=== PATIENT | male | born 1985 | race Caucasian/White ===

== ENCOUNTER 2021-01-21 03:28 | Inpatient (IN) | payer MEDICAID ==
[~2021-01-21] VITALS: Ht 190.5 cm; Wt 78.0 kg
[2021-01-21] VITALS (22 sets, daily range): BP systolic 89–138; BP diastolic 52–88
--- NOTE | 2021-01-21 03:31 | NUR ---
UNABLE TO OBTAIN RECTAL TEMP AT THIS TIME. PATIENT IS GIVEN WARM BLANKT WITH JEFRY HUGGER
--- NOTE | 2021-01-21 03:36 | NUR ---
UNABLE TO OBTAIN EKG AT THIS TIME, PATIENT IS SHAKING TOO MUCH.
--- NOTE | 2021-01-21 03:39 | NUR ---
PT [id number] WITH [employer] FOR POSSIBLE OVERDOSE. FOUND ON THE STREET, GIVEN NARCAN 2MG INTRANASAL. PLACED IN BED 12 ON SMALL BUSINESS BANKING OFFICER AND PULSE OX. PT NOTED TO BE HYPOTHERMIC. PLACED BLANKETS ON PT. ER MD AT BEDSIDE FOR EVAL AND ORDERS.
[2021-01-21] MEDS ORDERED: IV NS 0.9% 1,000 ML BAG IV ONE (04:00)
[2021-01-21 04:20] LABS: BASOPHILS % (AUTO) 0.2 % (0.0-2.0); EOSINOPHILS % (AUTO) 0.2 % (0.0-6.0); HEMATOCRIT 42 % (39-51); HEMOGLOBIN 13.3 g/dL (13.5-17.5); LYMPHOCYTES # (AUTO) 1.8 K/uL (0.8-4.8); LYMPHOCYTES % (AUTO) 7.6 % (20.0-44.0); MEAN CORPUSCULAR HGB CONC 32 g/dl (31.0-36.0); MEAN CORPUSCULAR VOLUME 92 fL (80-96); MONOCYTES # (AUTO) 0.8 K/uL (0.1-1.30); MONOCYTES % (AUTO) 3.6 % (2.0-12.0); NEUTROPHILS # (AUTO) 20.5 K/uL (1.8-8.9); NEUTROPHILS % (AUTO) 88.4 % (43.0-81.0); PLATELET COUNT (AUTO) 372 K/uL (150-450); RED BLOOD CELL COUNT(AUTO) 4.56 MIL/uL (4.5-6.0); WHITE BLOOD COUNT (AUTO) 23.2 K/uL (4.3-11.0)
[2021-01-21 04:30] LABS: CARBON DIOXIDE 18 mmol/L (21-32); CHLORIDE 97 mmol/L (98-107); CREATININE 2.3 mg/dL (0.6-1.3); GLUCOSE 84 mg/dL (74-106); POTASSIUM 4.3 mmol/L (3.5-5.1); SODIUM SERUM 141 mmol/L (136-145); UREA NITROGEN, BLOOD 23 mg/dL (7-18)
[2021-01-21 04:35] LABS: ALANINE AMINOTRANSFERASE 413 U/L (12-78); ALBUMIN 3.7 g/dL (3.4-5.0); ALCOHOL, BLOOD < 3 mg/dL (0-0); ALKALINE PHOSPHATASE 186 U/L (46-116); ASPARTATE AMINOTRANSFERASE 494 U/L (15-37); BILIRUBIN,DIRECT 0.6 mg/dL (0.0-0.2); BILIRUBIN,TOTAL 1.1 mg/dL (0.2-1.0); TOTAL PROTEIN, SERUM 8.2 g/dL (6.4-8.2)
[2021-01-21 04:36] LABS: ACETAMINOPHEN 0 ug/ml (10-30)
[2021-01-21 04:55] LABS: BAND % (MANUAL) 6 % (0.0-5.0); EOSINOPHILS % (MANUAL) 1 % (0-4); LYMPHOCYTES % (MANUAL) 6 % (16-48); MONOCYTES % (MANUAL) 8 % (0-11.0); NEUTROPHILS % (MANUAL) 79 (42-76)
[2021-01-21 04:56] LABS: BASOPHILS % (MANUAL) 0 % (0.0-2.0)
[2021-01-21] MEDS ORDERED: PIPERACILLIN /TAZOBACTAM 3.375 G in IV D5W 50 ML IV ONE (05:00)
[2021-01-21] MEDS ORDERED: VANCOMYCIN 1 GM in IV D5W 250 ML IV ONE (05:00)
[2021-01-21] MEDS ORDERED: IV NS 0.9% 2,000 ML IV ONE (05:00)
[2021-01-21] MEDS ORDERED: PIPERACILLIN /TAZOBACTAM 3.375 G VIAL IV ONE (05:01)
[2021-01-21] MEDS ORDERED: VANCOMYCIN 1 GM VIAL ONE (05:01)
[2021-01-21] MEDS ORDERED: NOREPINEPHRINE 4 MG/4 ML AMPUL IV ONE (05:24)
[2021-01-21] MEDS ORDERED: NOREPINEPHRINE 8 MG in IV NS 0.9% 242 ML IV PRN ×2 (05:30→06:30)
[2021-01-21 05:44] LABS: CREATINE KINASE, TOTAL 4360 U/L (39-308)
[2021-01-21 05:55] LABS: BILIRUBIN,URINE Negative (NEGATIVE); COLOR,URINE YELLOW (YELLOW); LEUKOCYTE ESTERASE ,URINE Negative (NEGATIVE); NITRITE, URINE Negative (NEGATIVE); PH,URINE 5.5 (5.0-8.0); PROTEIN,URINE 100 mg/dl (NEGATIVE); UGLUCOSE Negative (NEGATIVE); UROBILINOGEN,URINE 0.2 EU/dL (0.2)
[2021-01-21] MEDS ORDERED: ONDANSETRON HCL/PF 4 MG/2 ML VIAL IVP PRN (06:30)
[2021-01-21] MEDS ORDERED: ACETAMINOPHEN 650 MG/SUPP.RECT RC PRN (06:30)
--- NOTE | 2021-01-21 06:30 | NUR ---
ER AT BEDSIDE FOR CENTRAL LINE
--- NOTE | 2021-01-21 06:44 | NUR ---
TEMP 97.8
--- NOTE | 2021-01-21 07:14 | NUR ---
Heather aguila in ED - 01/21/21 at 0714 by MAYRA PT AWAKE IN BED, ON MONITOR, AND PULSE OX.
--- NOTE | 2021-01-21 07:14 | NUR ---
PT AWAKE IN BED, ON MONITOR, AND PULSE OX.
[2021-01-21 07:47] LABS: BACTERIA,URINE Rare /HPF (None Seen); SPERM,URINE Moderate /HPF (None Seen); SQUAMOUS EPITHELIAL CELL,UR Rare /HPF (None Seen)
[2021-01-21 07:48] LABS: WBC,URINE 0-3 /HPF (0-3)
--- NOTE | 2021-01-21 08:05 | NUR ---
ROOM 257
--- NOTE | 2021-01-21 08:15 | NUR ---
REPORT GIVEN TO NURSE BOB
--- NOTE | 2021-01-21 08:41 | NUR ---
mrsa nares swab done and sent to the lab
--- NOTE | 2021-01-21 08:42 | NUR ---
The patient is transfered to room 257 per [facility] policy.
--- NOTE | 2021-01-21 08:44 | NUR ---
RN NOTES PATIENT ADMITTED FROM ER 35Y/OLD MALE ON DX OF OD, SEPTIC SHOCK, HYPOTENSION. PATIENT A/O X3, WITH DELIRIUM.ROOM AIR, NO ACUTE RESPIRATORY DISTRESS. PATIENT ON TELE MONITOR, BEDSIDE MONITOR SHOWS HR -113, BP 85/59, R-90, O2-96 % SKIN ASSESSMENT DONE PATIENT VERY DIRTY, HAS MULTIPLE SCABS WITH DISCOLORATION, REFUSED BACK SIDE PICTURES TO BE TAKEN. DA SILVA DRAINING VIA GRAVITY. IV ACCESS ON REJ INFUSING LEVOPHED O.3MCG/KG/HR, PATIENT REFUSED PAIN, CALL LIGHT WITHIN TO REACH. SEEN PSYCHIATRIST, AND HOSPITALIST. PATIENT REFUSED SI/HI AT THIS TIME. WILL MONITORING.
[2021-01-21 10:24] LABS: BILIRUBIN,DIRECT 0.7 mg/dL (0.0-0.2); BILIRUBIN,TOTAL 1.4 mg/dL (0.2-1.0)
[2021-01-21] MEDS ORDERED: PIPERACILLIN /TAZOBACTAM 3.375 G in IV D5W 50 ML IV SCH (11:00)
[2021-01-21] MEDS: PANTOPRAZOLE 40 MG VIAL IV SCH (11:24)
--- NOTE | 2021-01-21 12:30 | NUR ---
RN NOTES PATIENT TOLERATED LUNCH 15%, WAS COMPLAINING OF DRY MOUTH AND NAUSEATED, VOMIT X2. ABD US DONE. KEEP HOB ELEVATED. PATIENT T-97.7F, BUT WAS COMPLAINING OF HOT ON HIS HEAD, PUT COOLING FAN AT HIS ROOM, OFFERED SOME ICE. PATIENT CALM , COOPERATIVE.
--- NOTE | 2021-01-21 13:00 | NUR ---
RN NOTES LACTIC ACID 2.[address] CHAUHAN NO NEW ORDERS.
[2021-01-21] MEDS: MEROPENEM 1 G in IV NS 0.9% 100 ML IV SCH (16:52)
--- NOTE | 2021-01-21 18:30 | NUR ---
RN NOTES PATIENT VOMIT X2 200 ML. REFUSED DINNER BECAUSE OF HECK UPS. PATIENT A/O X3, REFUSED PAIN, NO ACUTE RESPIRATORY DISTRESS, INFUSING LEVOPHED 0.06MCG/KG/HR, CALL LIGHT WITHIN TO REACH. ENDORSED ONCOMING NURSE FOLLOW PLAN OF CARE.
--- NOTE | 2021-01-21 19:02 | NUR ---
RN NOTES ADMINISTERED ZOFRAN 4 MG/ML IV PUSH FOR NAUSEA/VOMITING 600 ML. WILL MONITORING.
--- NOTE | 2021-01-21 19:30 | NUR ---
FLORIST HELPER LEVOPHED TITRATED OFF BP 115/84
--- NOTE | 2021-01-21 20:09 | NUR ---
REGIONAL VICE PRESIDENT LIFE SALES PT CALM AT THIS TIME HOWEVER REFUSED LINE DRAW FOR TROPONIN AT THIS TIME. PER PT HE WILL LET US KNOW WHEN HE IS READY.
[2021-01-21] MEDS: IV NS 0.9% 1,000 ML IV PRN (22:00)
[2021-01-21] MEDS: VANCOMYCIN 1.25 GM in IV D5W 250 ML IV SCH (23:00)
[2021-01-22] VITALS (24 sets, daily range): BP systolic 104–137; BP diastolic 47–88
[2021-01-22] MEDS: MEROPENEM 1 G in IV NS 0.9% 100 ML IV SCH ×3 (01:30→17:02)
[2021-01-22 04:28] LABS: BASOPHILS % (AUTO) 0.2 % (0.0-2.0); EOSINOPHILS % (AUTO) 0.1 % (0.0-6.0); HEMATOCRIT 35 % (39-51); HEMOGLOBIN 11.8 g/dL (13.5-17.5); LYMPHOCYTES % (AUTO) 8.3 % (20.0-44.0); MEAN CORPUSCULAR HGB CONC 34 g/dl (31.0-36.0); MEAN CORPUSCULAR VOLUME 87 fL (80-96); MONOCYTES # (AUTO) 0.6 K/uL (0.1-1.30); MONOCYTES % (AUTO) 5.2 % (2.0-12.0); NEUTROPHILS # (AUTO) 10.5 K/uL (1.8-8.9); NEUTROPHILS % (AUTO) 86.2 % (43.0-81.0); PLATELET COUNT (AUTO) 196 K/uL (150-450); RED BLOOD CELL COUNT(AUTO) 3.97 MIL/uL (4.5-6.0); WHITE BLOOD COUNT (AUTO) 12.2 K/uL (4.3-11.0)
[2021-01-22 04:41] LABS: CALCIUM, SERUM 7.8 mg/dL (8.5-10.1); CREATININE 2.6 mg/dL (0.6-1.3); POTASSIUM 4.8 mmol/L (3.5-5.1)
[2021-01-22 04:55] LABS: THYROID STIMULATING HORMONE 0.732 uIU/mL (0.358-3.74)
[2021-01-22 05:00] LABS: ALBUMIN 2.8 g/dL (3.4-5.0); BILIRUBIN,TOTAL 0.8 mg/dL (0.2-1.0); MAGNESIUM 2.5 mg/dL (1.8-2.4); PHOSPHORUS 7.1 mg/dL (2.5-4.9); TOTAL PROTEIN, SERUM 6.1 g/dL (6.4-8.2)
[2021-01-22 05:19] LABS: CREATININE 2.6 mg/dL (0.6-1.3); POTASSIUM 4.9 mmol/L (3.5-5.1)
--- NOTE | 2021-01-22 06:00 | NUR ---
GRAIN PACKER PT INDEPENDENT WITH ADLs. DECLINED BED BATH AND THOROUGH SKIN ASSESSMENT. REMAINED COVERED WITH MULTIPLE BLANKETS.
--- NOTE | 2021-01-22 06:33 | NUR ---
PRODUCT STRATEGY DIRECTOR PT DECLINED TO HAVE DINNER FOOD TRAY REMOVED
--- NOTE | 2021-01-22 08:00 | NUR ---
RN NOTES SEEN PATIENT IN THE BED EATING BREAKFAST, A/O X3, CALM AND COOPERATIVE, NO ACUTE DISTRESS, NO SOB. PATIENT REFUSED PAIN, SEEN SPECIAL EDUCATION PARAPROFESSIONAL, AND DR NIXON, AND HOSPITALIST DR CHAUHAN. PLAN OF DOWNGRADE PATIENT TO THE TELE AFTER NO CONTRAST STUDIES NOW CONTINUE TO HYDRATE, CRISIS TEAM EVAL. DA SILVA DRAINING LIGHT YELLOW OUTPUT. CALL LIGHT WITHIN TO REACH. WILL MONITORING.
[2021-01-22] MEDS: PANTOPRAZOLE 40 MG VIAL IV SCH (08:48)
--- NOTE | 2021-01-22 09:02 | NUR ---
SS consult received over the weekend for homelessness. SW will follow up at a later time.
--- NOTE | 2021-01-22 11:45 | NUR ---
RN NOTES TRANSFERRED PATIENT TO THE TELE UNIT, A/O X3, NO ACUTE RESPIRATORY DISTRESS, VSS, REFUSED PAIN. DA SILVA DRAINING VIA GRAVITY. PATIENT TOLERATED LUNCH WELL. BEDSIDE REPORT GIVEN RN. RN WILL FOLLOW UP WITH HOLD PLACEMENT PSYCH TEAM EVALUATION TODAY. PATIENT REFUSED SI/HI/AVH AT THIS TIME. RN VERBALIZED UNDERSTANDING.
--- NOTE | 2021-01-22 12:20 | NUR ---
PATIENT QUESTIONS ABOUT IVF, NORMAL SALINE AT 150 ML PER HOUR. EDUCATION ABOUT THE KIDNEYS WILL BENEFIT FROM THE HYDRATION. PATIENT VERBALIZES UNDERSTANDING. HARINI MCCORMICK RN
[2021-01-22] MEDS: IV NS 0.9% 1,000 ML IV PRN ×2 (12:37→18:24)
--- NOTE | 2021-01-22 19:30 | NUR ---
RN NOTE RECEIVED PATIENT IN BED. A/OX4. TOLERATING ROOM AIR. RESPIRATIONS ARE EVEN AND UNLABORED. NO S/S SOB NOTED. NO C/O PAIN ATT HIS TIME. EXTERNAL TELE MONITOR READS SINUS RHYTHM HR 84. IN NO APPARENT DISTRESS. IV ACCESS IN LFA #18 RUNNING NS@120ML/HR. IV ACCESS IN RIJ TLC PATENT AND SALINE LOCKED,DA SILVA CATHETER IS PRESENT, DRAINING TO GRAVITY, URINE IS YELLOW. BED IS LOW AND LOCKED, HOB ELEVATED IN SEMI FOWLERS, SIDE RAILS UP X2, CALL LIGHT WITHIN REACH. WILL CONTINUE TO MONITOR THROUGHOUT SHIFT.
[2021-01-23] VITALS: BP 125/81
[2021-01-23] MEDS: MEROPENEM 1 G in IV NS 0.9% 100 ML IV SCH ×3 (00:52→16:37)
[2021-01-23] MEDS: IV NS 0.9% 1,000 ML IV PRN ×3 (01:16→16:38)
--- NOTE | 2021-01-23 04:37 | NUR ---
RN NOTE PATIENT REFUSED 0400 VITALS
--- NOTE | 2021-01-23 05:31 | NUR ---
RN NOTE PATIENT REFUSED AM LABS.
--- NOTE | 2021-01-23 06:14 | NUR ---
RN NOTE PATIENT RESTING IN BED. A/OX4. TOLERATING ROOM AIR.NO RESP DISTRESS. NO C/O PAIN. TELE MONITOR IS SINUS RHYTHM. NO DISTRESS. IV LFA #18 RUNNING NS@120ML/HR. AND RIJ. DA SILVA CATHETER OUTPUT 3800ML. BED REMAINS LOW AND LOCKED, HOB ELEVATED IN SEMI FOWLERS, SIDE RAILS UP X2, WILL ENDORSE TO ONCOMING SHIFT.
[2021-01-23] MEDS: LORAZEPAM INJ 2 MG/ML VIAL IVP PRN ×2 (07:52→17:21)
[2021-01-23 08:06] LABS: *SPE ALBUMIN 2.7 g/dL (2.9-4.4); *SPE ALPHA-1-GLOBULIN 0.3 g/dL (0.0-0.4); *SPE ALPHA-2-GLOBULIN 0.7 g/dL (0.4-1.0); *SPE BETA GLOBULIN 0.8 g/dL (0.7-1.3); *SPE GLOBULIN, TOTAL 2.8 g/dL (2.2-3.9); *SPE M-SPIKE Not Observed g/dL (Not Observed)
--- NOTE | 2021-01-23 08:10 | NUR ---
PATIENT REFUSED 0800 VITALS
[2021-01-23] MEDS: PANTOPRAZOLE 40 MG VIAL IV SCH (08:57)
--- NOTE | 2021-01-23 10:12 | NUR ---
per litzy okeefe pt. does not need sitter for now and can be discharge to [facility] facility once medically clear.
[2021-01-23 15:09] LABS: BASOPHILS % (AUTO) 0.5 % (0.0-2.0); EOSINOPHILS % (AUTO) 0.1 % (0.0-6.0); HEMATOCRIT 37 % (39-51); HEMOGLOBIN 12.5 g/dL (13.5-17.5); LYMPHOCYTES # (AUTO) 1.2 K/uL (0.8-4.8); LYMPHOCYTES % (AUTO) 16.4 % (20.0-44.0); MEAN CORPUSCULAR HGB CONC 34 g/dl (31.0-36.0); MEAN CORPUSCULAR VOLUME 87 fL (80-96); MONOCYTES # (AUTO) 0.6 K/uL (0.1-1.30); MONOCYTES % (AUTO) 7.7 % (2.0-12.0); NEUTROPHILS # (AUTO) 5.7 K/uL (1.8-8.9); NEUTROPHILS % (AUTO) 75.3 % (43.0-81.0); PLATELET COUNT (AUTO) 231 K/uL (150-450); RED BLOOD CELL COUNT(AUTO) 4.22 MIL/uL (4.5-6.0); WHITE BLOOD COUNT (AUTO) 7.5 K/uL (4.3-11.0)
[2021-01-23 15:54] LABS: ALBUMIN 2.6 g/dL (3.4-5.0); BILIRUBIN,TOTAL 0.7 mg/dL (0.2-1.0); CALCIUM, SERUM 8.3 mg/dL (8.5-10.1); CREATININE 1.7 mg/dL (0.6-1.3); MAGNESIUM 2.2 mg/dL (1.8-2.4); PHOSPHORUS 2.8 mg/dL (2.5-4.9); TOTAL PROTEIN, SERUM 6.1 g/dL (6.4-8.2)
[2021-01-23 16:00] VITALS: BP 112/75
--- NOTE | 2021-01-23 18:43 | NUR ---
EQUIPMENT RECORDS SUPERVISOR CLOSING NOTE PATIENT CURRENTLY LYING IN BED, RESTING. A/O X3. STABLE ON ROOM AIR - NO SOB NOTED. NO DISTRESS/DISCOMFORT NOTED. NO PAIN NOTED AT THIS TIME. PATIENT STATES HE WISHES TO "NOT BE CONSCIOUS" AND THAT HE HAS A LOT OF ANXIETY. PATIENT STATES HE DOES NOT WANT TO KILL HIMSELF. ATIVAN 1MG IVP GIVEN @ 1721. IV ACCESS TO RIGHT IJ 3LC, RIGHT FA, AND LEFT HAND - RUNNING NS @ 150ML/HR. EXTERNAL TELE MONITOR READS SR 88. DA SILVA CATHETER NOTED - INTACT AND PATENT - 3900 OUTPUT THIS SHIFT. SAFETY MEASURES IN PLACE. CALL LIGHT WITHIN REACH. WILL ENDORSE TO STUDIO PRODUCER NURSE FOR MOLINA.
--- NOTE | 2021-01-23 19:46 | NUR ---
RN OPENING NOTE PATIENT RESTING IN BED. A/OX2. TOLERATING ROOM AIR. NO SOB OR RESP DISTRESS. NO C/O PAIN. ON TELE MONITOR: SINUS RHYTHM 90'S. EDUCATED ON REASONING BEHIND HIS ADMISSION, VERBALIZED UNDERSTANDING. IV LFA #18 RUNNING 1/2 NS @125ML/HR AND (R) IJ CLEAN AND INTACT. DA SILVA CATHETER DRAINING CLOUDY YELLOW URINE. SAFETY MEASURES IN PLACE: BED REMAINS LOW AND LOCKED, HOB ELEVATED IN SEMI FOWLERS, SIDE RAILS UP X2, CALL LIGHT WITHIN REACH. NADIRA CERNA AT BEDSIDE SITTER FOR ROOM 115. NO ACUTE DISTRESS NOTED AT THIS TIME.
[2021-01-23 20:00] VITALS: BP 112/93
[2021-01-23] MEDS ORDERED: TRAZODONE 50 MG TABLET PO PRN (22:00)
[2021-01-23] MEDS: IV 1/2NS 1000 ML 1,000 ML IV PRN (22:41)
[2021-01-24] VITALS: BP 140/93
[2021-01-24] MEDS: MEROPENEM 1 G in IV NS 0.9% 100 ML IV SCH ×3 (00:36→17:14)
--- NOTE | 2021-01-24 00:59 | NUR ---
RN NOTE [facility] CONTACTED TO ENSURE COMPATIBILITY OF MERREM WITH 1/2 NS. NOT COMPATIBLE. ENSURE TO RUN MERREM WITH 0.9% NS ON SEPARATE IV SITE. WILL ENDORSE TO MORNING SHIFT RN
[2021-01-24] MEDS: LORAZEPAM INJ 2 MG/ML VIAL IVP PRN ×4 (01:04→23:52)
--- NOTE | 2021-01-24 02:00 | NUR ---
RN NOTE PT. REPORTS ANXIETY, RESTLESS AND INABILITY TO SLEEP. PRN DOSE OF ATIVAN 0.5 MG IVP GIVEN AT 0104. PT. NOW SLEEPING COMFORTABLY IN BED. ENRIQUE WADDELL CNA STILL AT BEDSIDE FOR ROOM 115. NO ACUTE DISTRESS NOTED AT THIS TIME.
[2021-01-24 04:00] VITALS: BP 130/76
--- NOTE | 2021-01-24 05:41 | NUR ---
RN NOTE PT. REFUSED AM LABS. TARIFF COMPILING CLERK STATED WILL RETURN AT A LATER TIME TO DRAW THEM THIS MORNING.
[2021-01-24] MEDS: IV 1/2NS 1000 ML 1,000 ML IV PRN ×2 (06:15→20:35)
--- NOTE | 2021-01-24 06:38 | NUR ---
RN CLOSING NOTE PATIENT RESTING IN BED. A/OX2. TOLERATING ROOM AIR. NO SOB OR RESP DISTRESS. NO C/O PAIN. ON TELE MONITOR: SINUS RHYTHM 90'S. DENIES ANY PAIN OR DISCOMFORT AT THIS TIME IV RUNNING 1/2 NS @125ML/HR AND (R) IJ CLEAN AND INTACT. DA SILVA CATHETER DRAINING YELLOW URINE. ALL ORDERS AND MEDICATIONS COMPLETED THROUGHOUT SHIFT. ANXIETY AND RESTLESSNESS ADDRESSED WITH PRN DOSE OF ATIVAN X1. SAFETY MEASURES IN PLACE: BED REMAINS LOW AND LOCKED, HOB ELEVATED IN SEMI FOWLERS, SIDE RAILS UP X2, CALL LIGHT WITHIN REACH. NADIRA CERNA AT BEDSIDE SITTER FOR ROOM 115. PT. REFUSED AM LABS. NO ACUTE DISTRESS NOTED AT THIS TIME. WILL ENDORSE CONTINUITY OF CARE TO MORNING SHIFT RN
--- NOTE | 2021-01-24 06:59 | NUR ---
RN NOTE PT. REFUSED CHEST X-RAY, CHARGE NURSE AWARE. TECH STATES HE WILL RETURN AT A LATER TIME.
[2021-01-24] MEDS: PANTOPRAZOLE 40 MG TABLET.DR PO SCH (07:30)
--- NOTE | 2021-01-24 07:38 | NUR ---
RECEIVED REPORT FROM BRENDA GREEN FOR CONTINUATION OF CARE, PATIENT SLEEPING AT THIS TIME, BREATHING EVEN AND UNLABORED, NO ACUTE DISTRESS NOTED.
[2021-01-24 08:00] VITALS: BP 119/80
--- NOTE | 2021-01-24 08:49 | NUR ---
RN NOTE PT SLEEPING IN BED. AROUSES TO LIGHT TOUCH. ON RA WITH NO SOB OR RESPIRATORY DISTRESS PRESENT. A/O X3 AND SUDANESE SPEAKING. NO COMPLAINT OF PAIN OR NAUSEA. ON UTILITY APPRAISER. NO EDEMA PRESENT. ON BEDREST AND AMBULATORY WITH ASSIST. SKIN IS INTACT. IV PRESENT ON L FA 18G AND FLUSHES WELL. LABS AND ORDERS REVIEWED. SAFETY MEASURES IN PLACE. SIDE RAILS RAISED. BED LOWERED. CALL LIGHT WITHIN REACH. WILL CONTINUE TO MONITOR.
--- NOTE | 2021-01-24 08:54 | NUR ---
PT REFUSES XRAY AT 0700 THIS AM SAID MAYBE LATER
--- NOTE | 2021-01-24 08:57 | NUR ---
ENDORSED PATIENT TO DON SCHULTZ FOR CONTINUATION OF CARE, PATIENT IN STABLE CONDITION.
--- NOTE | 2021-01-24 10:30 | NUR ---
Adjutant General note: financial services intern consult received for homelessness. SS will follow up at a later time.
[2021-01-24 12:00] VITALS: BP 135/75
[2021-01-24 16:00] VITALS: BP 118/82
[2021-01-24 16:39] LABS: BASOPHILS # (AUTO) 0.1 K/uL (0.0-0.2); BASOPHILS % (AUTO) 0.8 % (0.0-2.0); EOSINOPHILS % (AUTO) 0.7 % (0.0-6.0); HEMATOCRIT 40 % (39-51); HEMOGLOBIN 13.7 g/dL (13.5-17.5); LYMPHOCYTES # (AUTO) 1.7 K/uL (0.8-4.8); LYMPHOCYTES % (AUTO) 21.4 % (20.0-44.0); MEAN CORPUSCULAR HGB CONC 34 g/dl (31.0-36.0); MEAN CORPUSCULAR VOLUME 87 fL (80-96); MONOCYTES # (AUTO) 0.7 K/uL (0.1-1.30); MONOCYTES % (AUTO) 8.2 % (2.0-12.0); NEUTROPHILS # (AUTO) 5.5 K/uL (1.8-8.9); NEUTROPHILS % (AUTO) 68.9 % (43.0-81.0); PLATELET COUNT (AUTO) 290 K/uL (150-450); RED BLOOD CELL COUNT(AUTO) 4.61 MIL/uL (4.5-6.0)
[2021-01-24 16:48] LABS: CALCIUM, SERUM 8.8 mg/dL (8.5-10.1); CREATININE 1.3 mg/dL (0.6-1.3); POTASSIUM 4.8 mmol/L (3.5-5.1)
--- NOTE | 2021-01-24 18:36 | NUR ---
RN CLOSING NOTE PT SLEEPING IN BED. MOVED TO 114-1. AROUSES TO LIGHT TOUCH. ON RA WITH NO SOB OR RESPIRATORY DISTRESS PRESENT. A/O X3 AND EMIRATI SPEAKING. ANXIETY PRESENT AND ATIVAN GIVEN. NO COMPLAINT OF PAIN OR NAUSEA. NO SLURRY CONTROL TENDER PRESENT. NO EDEMA PRESENT. ON BEDREST AND AMBULATORY WITH ASSIST. SKIN IS INTACT. IV PRESENT ON L FA 18G AND FLUSHES WELL. 1/2 NS RUNNING AT 125 ML/HR. LABS AND ORDERS REVIEWED. ROUTINE MEDS GIVEN. SAFETY MEASURES IN PLACE. SIDE RAILS RAISED. BED LOWERED. CALL LIGHT WITHIN REACH. REPORT TO BE GIVEN TO NIGHT NURSE FOR MOLINA.
--- NOTE | 2021-01-24 19:35 | NUR ---
RN NOTE PT RECEIVED IN BED, SLEEPING. PT CURRENTLY ON ROOM AIR SHOWING NO S/S OF RESPIRATORY DISTRESS/SOB. A&OX3. CURRENTLY ON BEDREST, BUT ABLE TO AMBULATE WITH ASSISTANCE. SKIN IS INTACT. PT HAS RIJ AND IV ON LEFT HAND INFUSING 1/2 NS AT 125 ML/HR. IV LINE FLUSHED, PATENT, AND INTACT. ALL SAFETY MEASURES INITIATED. CALL LIGHT WITHIN REACH, BED ALARM ON, BED LOCKED AND IN LOWEST POSITION. WILL CONTINUE TO MONITOR THROUGHOUT THE SHIFT.
[2021-01-24 20:00] VITALS: BP 128/75
[2021-01-25] MEDS: MEROPENEM 1 G in IV NS 0.9% 100 ML IV SCH ×2 (01:12→08:03)
[2021-01-25 04:00] VITALS: BP 102/61
[2021-01-25] MEDS: IV 1/2NS 1000 ML 1,000 ML IV PRN (06:06)
[2021-01-25 06:55] LABS: BASOPHILS # (AUTO) 0.1 K/uL (0.0-0.2); BASOPHILS % (AUTO) 0.8 % (0.0-2.0); EOSINOPHILS % (AUTO) 1.1 % (0.0-6.0); HEMATOCRIT 40 % (39-51); HEMOGLOBIN 13.9 g/dL (13.5-17.5); LYMPHOCYTES % (AUTO) 24.6 % (20.0-44.0); MEAN CORPUSCULAR HGB CONC 35 g/dl (31.0-36.0); MEAN CORPUSCULAR VOLUME 86 fL (80-96); MONOCYTES # (AUTO) 0.8 K/uL (0.1-1.30); MONOCYTES % (AUTO) 9.6 % (2.0-12.0); NEUTROPHILS # (AUTO) 5.2 K/uL (1.8-8.9); NEUTROPHILS % (AUTO) 63.9 % (43.0-81.0); PLATELET COUNT (AUTO) 291 K/uL (150-450); RED BLOOD CELL COUNT(AUTO) 4.66 MIL/uL (4.5-6.0); WHITE BLOOD COUNT (AUTO) 8.1 K/uL (4.3-11.0)
[2021-01-25 07:08] LABS: CALCIUM, SERUM 8.8 mg/dL (8.5-10.1); CREATININE 1.1 mg/dL (0.6-1.3); POTASSIUM 4.9 mmol/L (3.5-5.1)
--- NOTE | 2021-01-25 07:33 | NUR ---
RN NOTE NO CHANGES IN PT CONDITION THROUGHOUT THE SHIFT. PT WAS ASLEEP ALL NIGHT. CURRENTLY ON ROOM AIR SHOWING NO S/S OF RESPIRATORY DISTRESS/SOB. ALL DUE MEDS GIVEN ORDERED. PT KEPT CLEAN AND COMFORTABLE. ALL SAFETY MEASURES IMPLEMENTED. BED LOCKED AND IN LOWEST POSITION, BED ALARM ON, CALL LIGHT WITHIN REACH. WILL CONTINUE TO MONITOR THROUGHOUT THE SHIFT.
[2021-01-25] MEDS: PANTOPRAZOLE 40 MG TABLET.DR PO SCH (08:03)
[2021-01-25] MEDS: LORAZEPAM INJ 2 MG/ML VIAL IVP PRN (08:28)
--- NOTE | 2021-01-25 11:08 | NUR ---
Clinical Social Work Note This 35 year old male is alert and oriented x 4 and cooperative with cytopathology technologist. He admits to using stimulants since his teenage years. He deneies any wish to harm himself or others. His mood is euthymic. He admits he will return to the streets and continue using methamphetamines. he asked " why can't the doctors here prescribe me Adderol?".Patient states that he is used to the streets and will accept resources but is unlikely to use them. He is not motivated to accept substance abuse treatment. Per Dr Ware, patient is not yet medically stable for discharge. He does not want to go to [facility]. Patient is not on a 5150 so cannot be held against his will. He will be given homeless resources including substance abuse referrals and sign the homeless waiver prior to discharge. RN will need to complete homeless discharge checklist. Patient is neither suicidal or homicidal. He is clear for discharge once MD gives a discharge order.
== END 2021-01-25 13:00 | disposition left against medical advice (07) | DRG 812 ==
LOC: EDBD 03:31 → ER 03:31 → ICU 08:14 → MEDSG1 01-22 11:32 → TELE1 01-22 12:02 → MEDSG1 01-24 08:52
PROVIDERS: ADMIT Internal Medicine; ATTEND Family Medicine
PROC: 02HV33Z Insertion of Infusion Device into Superior Vena Cava, Percutaneous Approach (ICD-10-PCS; principal; 2021-01-21)
PROC: B548ZZA Ultrasonography of Superior Vena Cava, Guidance (ICD-10-PCS; 2021-01-21)
DX: T43.621A Poisoning by amphetamines, accidental (unintentional), initial encounter (principal); J96.01 Acute respiratory failure with hypoxia; I21.A1 Myocardial infarction type 2; K72.00 Acute and subacute hepatic failure without coma; J69.0 Pneumonitis due to inhalation of food and vomit; A41.9 Sepsis, unspecified organism; N17.0 Acute kidney failure with tubular necrosis; G92 Toxic encephalopathy; R65.21 Severe sepsis with septic shock; Z20.822 Contact with and (suspected) exposure to COVID-19; F39 Unspecified mood [affective] disorder; E86.1 Hypovolemia; E87.2 Acidosis; Z59.0 Homelessness; Z88.0 Allergy status to penicillin; M62.82 Rhabdomyolysis; F19.10 Other psychoactive substance abuse, uncomplicated; R74.01 Elevation of levels of liver transaminase levels; K14.9 Disease of tongue, unspecified
CPT/HCPCS: 36415; 70450-TC; 71045-TC; 76700-TC; 80048-TC; 80053-TC; 80061-TC; 80074; 80076-TC; 81001; 82140-TC; 82247-TC; 82248-TC; 82550-TC; 82553; 82962-TC; 83605-TC; 83735-TC; 83970; 84100-TC; 84155; 84165; 84443-TC; 84484-TC; 85025-TC; 87040-TC; 87081-TC; 87086-TC; 87806; 93307-TC; A6403; C1751; C9113; C9803; G0378; G0480; J2060; J2185; J2405; J2543; J3370; J3490; J7030; J7050; J7060